=== PATIENT | male | born 1955 | race Caucasian/White ===

== ENCOUNTER 2022-04-11 16:28 | Emergency (ER) | payer SELFPAY ==
[~2022-04-11 16:28] MED LIST: Iopamidol-370 76% 500 ML 1 ML ONE
[2022-04-11] MEDS ORDERED: Ondansetron PF 4 MG/2 ML Vial ONE (17:01)
[2022-04-11] MEDS ORDERED: Morphine 4 MG/ML VIAL ONE (17:01)
[2022-04-11 17:02] LABS: Hemoglobin 10.4 g/dL (14.0-18.0); Mean Corpuscular HGB CONC 36.4 g/dL (32.0-36.0); Mean Corpuscular Hemoglobin 32.5 pg (27.0-31.0); Mean Corpuscular Volume 89.4 fl (78.0-98.0); Mean Platelet Volume 9.7 fL (7.4-10.4); Platelet Count 91 10x3/uL (130-400); RBC Distribution Width 22.5 % (11.5-14.5); White Blood Cell (WBC) Count 11.1 10x3/uL (4.8-10.8)
[2022-04-11 17:13] LABS: INR-International Normal Ratio 2.4; Prothrombin Time 27.3 sec (12.0-14.7)
[2022-04-11 17:14] LABS: PTT 35.5 sec (22.9-36.1)
[2022-04-11 17:26] LABS: Anisocytosis SLIGHT = 6-15 cells (100X) (0-5/hpf); Band 28 % (5-11); Lymphocytes 3 % (21-51); MDiff Complete? YES; Metamyelocyte 1 % (0-0); Monocytes 3 % (0-10); Neutrophil 65 % (42-75); Nucleated RBC 3 % (0); Ovalocytes SLIGHT = 2-5 cells (100X) (0-1/hpf); Platelet Morphology Comment Appears Decreased; Polychromasia MODERATE = 3-4 cells (100X) (0-2/hpf); Spherocytes SLIGHT = 1-5 cells (100X) (None Seen)
[2022-04-11 17:39] LABS: Bilirubin, Total 46.7 mg/dL (0.2-1.2)
[2022-04-11 17:40] LABS: Bilirubin, Total 48.4 mg/dL (0.2-1.2)
[2022-04-11 17:45] LABS: ALT (SGPT) 210 U/L (8-55); AST (SGOT) 157 U/L (5-34); Albumin 3.7 g/dL (3.4-4.8); Alkaline Phosphatase 257 U/L (40-110); Anion Gap 19 mmol/L (10-20); BUN (Urea Nitrogen) 34 mg/dL (8.4-25.7); Calc. Creatinine Clearance 0 mL/min (70-130); Calcium 8.5 mg/dL (7.8-10.44); Carbon Dioxide 18 mmol/L (23-31); Chloride 105 mmol/L (98-107); Estimated GFR 59; Glucose 135 mg/dL (80-115); Protein, Total 5.7 g/dL (5.8-8.1); Sodium 138 mmol/L (136-145)
[2022-04-11 17:45] LABS: ALT (SGPT) 206 U/L (8-55); AST (SGOT) 155 U/L (5-34); Albumin 3.7 g/dL (3.4-4.8); Alkaline Phosphatase 259 U/L (40-110); Bilirubin, Direct Greater than 10.0 mg/dL (0.1-0.3); Protein, Total 5.9 g/dL (5.8-8.1)
[2022-04-11] MEDS ORDERED: Fentanyl 100 MCG/2 ML VIAL ONE ×4 (18:02→22:48)
[2022-04-11 20:07] LABS: Lactic Acid 1.6 mmol/L (0.5-2.2)
[2022-04-11 20:46] LABS: Alcohol Less than 10 mg/dL (Less than 10); Salicylate Less than 8.0 mg/dL (15.0-30.0)
[2022-04-11 21:06] LABS: Bacteria/HPF 4+ HPF (None Seen); Bilirubin 4+ (Negative); Blood, Urine Trace (Negative); Clarity Clear (Clear); Glucose, Urine (Dipstick) Normal (Negative); Ketone, Urine Negative (Negative); Leukocyte 250 Leu/uL (Negative); Nitrite Negative (Negative); Protein, Urine (Dipstick) 30 mg/dL (Neg-Trace); RBC/HPF 0-3 HPF (0-3); Specific Gravity, Urine 1.036 (1.002-1.036); Squamous Epithelial None Seen HPF (0-3); WBC/HPF 21-50 HPF (0-3); pH, Urine 7.5 (5.0-9.0)
[2022-04-11] MEDS ORDERED: Acetylcysteine 20% (200mg/mL) 12,000 MG in Dextrose 5% in Water 200 ML IV SCH (22:15)
[2022-04-11] MEDS ORDERED: Piperacillin/Tazobactam 3.375 GM VIAL ONE (23:27)
[2022-04-11] MEDS ORDERED: WATER IV SCH (23:30)
[2022-04-11] MEDS ORDERED: DEXTROSE 5% IV SCH (23:30)
[2022-04-11] MEDS ORDERED: ACETYLCYSTEINE IV SCH (23:30)
== END 2022-04-12 00:14 | disposition short-term general hospital (02) ==
LOC: ERS 16:28
DX: K83.1 Obstruction of bile duct (principal); K72.00 Acute and subacute hepatic failure without coma; K83.09 Other cholangitis; D72.829 Elevated white blood cell count, unspecified; F17.200 Nicotine dependence, unspecified, uncomplicated
CPT/HCPCS: 36415; 74177; 76705; 80053; 80307; 81003; 81015; 82140; 82248; 83605; 85025; 85610; 85730; 87040; 87077; 87086; 87149; 87186; 93005; 96365; 96367; 96375; 96376; J0132; J2270; J2405; J2543; J3010; J7070; Q9967